=== PATIENT | male | born 1955 | race Caucasian/White ===

== ENCOUNTER 2023-03-02 18:21 | Outpatient (CLI) | payer MEDICARE, SELFPAY | END 2023-03-02 23:59 | LOC: LAB.DROPOF 18:21 | PROVIDERS: PCP Family Medicine; Visit Provider Family Medicine | DX: E07.9 Disorder of thyroid, unspecified (principal); Z12.5 Encounter for screening for malignant neoplasm of prostate | CPT/HCPCS: 84443; G0103 ==